=== PATIENT | male | born 1990 | race Caucasian/White ===

== ENCOUNTER 2020-10-14 14:33 | Emergency (ER) | payer SELFPAY ==
[~2020-10-14] VITALS: Ht 182.9 cm; Wt 124.0 kg
--- NOTE | 2020-10-14 15:08 | PHYS DOC ---
Past History Past Medical History: Other Past Surgical History: Tonsillectomy Alcohol Use: Rarely Drug Use: None Adult General Chief Complaint Chief Complaint: CHEST PAIN HPI HPI Patient is a 29-year-old male presents to the emergency department complaining of slow onset of chest pain that started today while he was at work. 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 Patient describes his pain as a burning stabbing pain that radiates down his left arm and up into his jaw. Patient currently rates his pain at a 5/10 on a 1-10 pain scale, patient states that the pain increases when he moves his arms and does physical activity. Patient states the pain decreases when he is at rest. Patient denies any diaphoretic episodes, denies nausea vomiting diarrhea or abdominal pains. Patient states that he feels short of breath however states that he always feels short of breath and does not feel any more short of breath than normal. Patient denies any rashes of his skin, any increased thirst or increased urination, denies swelling of his extremities. Patient denies homicidal or suicidal ideations. Patient reports an allergy to amoxicillin. Patient states he has a past medical history of bipolar depression, suicidal ideation, sleep disorder, seasonal allergies, and ADHD. Patient also states that he test positive for the TB skin test however has not had a positive chest x-ray nor positive tuberculosis work-up. Patient denies cigarette smoking, alcohol consumption, or illicit drug use. Review of Systems Review of Systems 14 body systems of review of systems have been reviewed. See HPI for pertinent positives and negative responses, otherwise all other systems are negative, nonpertinent or noncontributory. Family History Family History Patient reports his mother has had several cardiac stents placed, patient states his father has had a pulmonary embolus in the past. Current Medications Current Medications Patient reports taking biotin supplement daily, multivitamin supplement daily, [id number] Yaima and Zyrtec as needed for seasonal allergies, trazodone for a sleep aid, Lamictal for mood stabilizer, Adderall for ADHD. Allergies Allergies Allergies Coded Allergies Type Severity Reaction Last Updated Verified amoxicillin Allergy Intermediate 01/09/15 No Physical Exam Physical Exam Constitutional: Well developed, well nourished, no acute distress, non-toxic appearance. 29-year-old male in no apparent distress. HENT: Normocephalic, atraumatic, bilateral external ears normal, oropharynx moist, no oral exudates, nose normal. No lymphadenopathy of the head and neck appreciated, no erythema of the oropharynx, no tonsillary swelling or erythema noted, no uvular edema appreciated, no postnasal drip appreciated. Eyes: PERRLA, EOMI, conjunctiva normal, no discharge. Neck: Normal range of motion, no tenderness, supple, no stridor. Cardiovascular:Heart rate regular rhythm, no murmur, heart sounds S1-S2 to auscultation. Lungs & Thorax: Bilateral breath sounds clear to auscultation all lung [place]. Increased pain to palpation left anterior chest wall, increased pain with passive range of motion of left and right upper extremities, patient complained of pain with deep inspiration and expiration. Abdomen: Bowel sounds normal, soft, no tenderness, no masses, no pulsatile masses. Skin: Warm, dry, no erythema, no rash. Back: No tenderness, no CVA tenderness. Extremities: No tenderness, no cyanosis, no clubbing, ROM intact, no edema. Neurologic: Alert and oriented X 3, normal motor function, normal sensory function, no focal deficits noted. Psychologic: Affect normal, judgement normal, mood normal. EKG EKG EKG performed at 1442 by house respiratory therapy staff, shows a normal sinus rhythm without ectopy heart rate of 91 bpm, UT interval 0.134, QTc interval 0.415, no acute STEMI, no ACS, no acute ischemia appreciated, EKG interpreted by ED attending physician Dr. Corcoran Radiology/Procedures Radiology/Procedures PATIENT: ALFREDO CORDOVA ACCOUNT: [id number] : 1990 LOCATION: ER AGE: 29 SEX: M EXAM STATUS: REG ER ORD. PHYSICIAN: DAJUAN FIGUEROA APRN REASON: CHEST PAIN PROCEDURE: CHEST PA & LATERAL EXAMINATION: XR CHEST 2V CLINICAL HISTORY: Chest pain EXAM DATE/TIME: 10/14/2020 3:13 PM COMPARISON: None FINDINGS: Lines, Tubes, and Devices: None. Cardiomediastinal Silhouette: Within normal limits. Lungs and Pleura: No evidence of focal airspace consolidation or pleural ef fusion. Pulmonary vasculature unremarkable. Bones and Soft Tissues: No acute osseous abnormality. IMPRESSION: No evidence of acute cardiopulmonary abnormality. Electronically signed by: Leonel Orta DO (10/14/2020 3:56 PM) [facility] DICTATED AND SIGNED BY: LEONEL ORTA DO DATE: 10/14/20 1556 CC: DAJUAN FIGUEROA APRN; PCP,NO ~MTH0 0 Heart Score Risk Factors: Risk Factors: DM, Current or recent (<one month) smoker, HTN, HLP, family history of CAD, obesity. Risk Scores: Risk Factors: DM, Current or recent (<one month) smoker, HTN, HLP, family history of CAD, obesity. Course & Med Decision Making Course & Med Decision Making Pertinent Labs and Imaging studies reviewed. (See chart for details) 29-year-old male, vital signs reviewed, presents emergency department complaining of chest pain that started at approximately 1330 while at work, physical examination consistent with chest wall pain, however with family history of pulmonary embolus of his father, cardiac stent placement of his mother, a cardiopulmonary work-up was initiated along with a 30 mg dose IV Toradol. Chest x-ray read negative by house radiologist for cardiorespiratory process, patient's laboratory work-up was negative for cardiorespiratory process, upon reexamination of the patient, patient states his pain is relieved with the pain medication that he was given. Discussed with patient this is most likely chest wall pain, will prescribe 600 mg ibuprofen 3 times daily as needed pain, patient will follow up with primary care for ongoing aches and pains, return to ER precautions and concerns reviewed, patient discharged home without incident. Dragon Disclaimer Dragon Disclaimer This electronic medical record was generated, in whole or in part, using a voice recognition dictation system. Departure Departure: Impression: Primary Impression: Chest wall pain Disposition: 01 DC HOME SELF CARE/HOMELESS Condition: GOOD Referrals: PCP,NO (PCP) Patient Instructions: Chest Wall Pain Additional Instructions: Take medications as prescribed, see your doctor for ongoing aches and pains, return to the emergency department for worsening symptoms or other concerns. EMERGENCY DEPARTMENT GENERAL DISCHARGE INSTRUCTIONS Thank you for coming to [facility] (ED) today and trusting us with you care. We trust that you had a positivie experience in our Emergency Department. If you wish to speak to the department management, you may call the director at [phone]. YOUR FOLLOW UP INSTRUCTIONS ARE FOLLOWS: 1. Do you have a private Doctor? If you do not have a private doctor, please ask for a resource list of physicians or clinics that may be able to assist you with follow up care. 2. The Emergency Physician has interpreted your x-rays. The X-Ray specialist will also review them. If there is a change in the findings, you will be notified in 48 hours when at all possible. 3. A lab test or culture has been done, your results will be reviewed and you will be notified if you need a change in treatment. ADDITIONAL INSTRUCTIONS AND INFORMATION: 1. Your care today has been supervised by a physician who is specially trained in emergency care. Many problems require more than one evaluation for a complete diagnosis and treatment. We recommend that you schedule your follow up appointment as recommended to ensure complete treatment of you illness or injury. If you are unable to obtain follow up care and continue to have a problem, or if your condition worsens, we recommend that you return to the ED. 2. We are not able to safely determine your condition over the phone nor are we able to give sound medical advice over the phone. For these safety reasons, if you call for medical advice we will ask you to come to the ED for further evaluation. 3. If you have any questions regarding these discharge instructions please call the ED at [phone]. SAFETY INFORMATION: In the interest of safety, wellness, and injury prevention; we encourage you to wear your sealbelt, if you smoke; quite smoking, and we encourage family to use a protective helmet for bicycling and other sporting events that present an increased risk for head injury. IF YOUR SYMPTOMS WORSEN OR NEW SYMPTOMS DEVELOP, OR YOU HAVE CONCERNS ABOUT YOUR CONDITION; OR IF YOUR CONDITION WORSENS WHILE YOU ARE WAITING FOR YOUR FOLLOW UP APPOINTMENT; EITHER CONTACT YOUR PRIMARY CARE DOCTOR, THE PHYSICIAN WHOSE NAME AND NUMBER YOU WERE GIVEN, OR RETURN TO THE ED IMMEDIATELY. Scripts Ibuprofen (IBUPROFEN) 600 Mg Tablet 600 MG PO TID PRN PRN for PAIN, #30 TAB 0 Refills Prov: DAJUAN FIGUEROA APRN 10/14/20 DAJUAN FIGUEROA APRN Oct 14, 2020 15:08
[2020-10-14] MEDS ORDERED: KETOROLAC 30 MG/ML VIAL. IVP ONE (15:30)
--- NOTE | 2020-10-14 15:36 | EKG ---
[address] [address] Test Date: 2020-10-14 Test Time: 14:42:46 Pat Name: ALFREDO CORDOVA Department: Room: Gender: M [employer]: ROMMEL : 1990 Requested By: DAJUAN FIGUEROA Order Number: [id number] Reading MD: Measurements Intervals [place] Rate: 91 P: 45 CA: 134 QRS: 28 QRSD: 86 T: 30 QT: 336 QTc: 415 Interpretive Statements SINUS RHYTHM NORMAL ECG RI6.02 No previous ECG available for comparison
[2020-10-14 15:49] LABS: BASO # 0.1 x10^3/uL (0.0-0.2); BASO % 1 % (0-3); EOS # 0.1 x10^3/uL (0.0-0.7); EOS % 1 % (0-3); HEMATOCRIT 43.7 % (39.0-53.0); HEMOGLOBIN 14.4 g/dL (13.0-17.5); LYMPH # 2.5 x10^3/uL (1.0-4.8); LYMPH % 29 % (24-48); MEAN CORPUSCULAR HEMOGLOBIN 30 pg (25-35); MEAN CORPUSCULAR HGB CONC 33 g/dL (31-37); MEAN CORPUSCULAR VOLUME 90 fL (79-100); MONO # 0.7 x10^3/uL (0.0-1.1); MONO % 8 % (0-9); NEUT # 5.3 x10^3uL (1.8-7.7); NEUT % 62 % (31-73); PLATELET COUNT 341 x10^3/uL (140-400); RED BLOOD COUNT 4.87 x10^6/uL (4.30-5.70); RED CELL DISTRIBUTION WIDTH 12.8 % (11.5-14.5); WHITE BLOOD COUNT 8.5 x10^3/uL (4.0-11.0)
--- NOTE | 2020-10-14 15:58 | RAD ---
EXAMINATION: XR CHEST 2V CLINICAL HISTORY: Chest pain EXAM DATE/TIME: 10/14/2020 3:13 PM COMPARISON: None FINDINGS: Lines, Tubes, and Devices: None. Cardiomediastinal Silhouette: Within normal limits. Lungs and Pleura: No evidence of focal airspace consolidation or pleural effusion. Pulmonary vasculat ure unremarkable. Bones and Soft Tissues: No acute osseous abnormality. IMPRESSION: No evidence of acute cardiopulmonary abnormality. Electronically signed by: Leonel Celestin DO (10/14/2020 3:56 PM) [facility]
[2020-10-14 16:02] LABS: CALCIUM 8.9 mg/dL (8.5-10.1); GFR 87.2
[2020-10-14 16:16] LABS: ALBUMIN 3.8 g/dL (3.4-5.0); MAGNESIUM 2.2 mg/dL (1.8-2.4); TOTAL BILIRUBIN 0.5 mg/dL (0.2-1.0); TOTAL PROTEIN 7.5 g/dL (6.4-8.2)
[2020-10-14 16:18] VITALS: BP 130/83
[2020-10-14] MEDS ORDERED: IBUP600T16 PO (16:36)
== END 2020-10-14 16:40 | disposition home or self-care (01) ==
LOC: ER 14:33
DX: R07.89 Other chest pain (principal); R06.02 Shortness of breath; F31.9 Bipolar disorder, unspecified; Z88.1 Allergy status to other antibiotic agents
CPT/HCPCS: 36415; 71046; 80053; 82553; 83735; 84484; 85025; 93005; 96374; 99285; J1885